=== PATIENT | female | born 1945 | race Caucasian/White ===

== ENCOUNTER 2017-06-16 10:46 | Outpatient (CLI) | payer MEDICARE, MEDICAID ==
[2017-06-16 11:23] VITALS: BMI 29.3
[2017-06-16 13:07] LABS: #Eosinphils 0.1 thou/uL (0.0-0.7); #Lymphocytes 1.7 thou/uL (1.20-3.40); #Monocytes 0.4 thou/uL (0.11-0.59); #Neutrophils 4.5 thou/uL (1.40-6.50); %Basophils 0.3 % (0.0-1.0); %Eosinophils 0.9 % (0.0-10.0); %Lymphocytes 25.2 % (21.0-51.0); %Monocytes 5.3 % (0.0-10.0); Hematocrit 40.7 % (36.0-47.0); Mean Platelet Volume 9.1 fL (7.4-10.4); Red Blood Cell (RBC) Count 4.23 mill/uL (4.20-5.40); White Blood Cell (WBC) Count 6.6 thou/uL (4.8-10.8)
[2017-06-16 13:33] LABS: ALT (SGPT) 11 U/L (8-55); AST (SGOT) 16 U/L (5-34); Alkaline Phosphatase 125 U/L (40-150); Anion Gap 18 mmol/L (10-20); BUN (Urea Nitrogen) 18 mg/dL (9.8-20.1); Bilirubin, Total 0.5 mg/dL (0.2-1.2); Calc. Creatinine Clearance 64 mL/min (70-130); Calcium 9.3 mg/dL (7.8-10.44); Carbon Dioxide 25 mmol/L (23-31); Chloride 106 mmol/L (98-107); Estimated GFR-MDRD 59; Globulin 3.1 g/dL (2.4-3.5); Protein, Total 7.1 g/dL (6.0-8.3)
[2017-06-16 13:51] LABS: PTT 27.9 SEC (22.9-36.1)
--- NOTE | 2017-06-16 22:10 | EKG ---
Test Reason : Blood Pressure : / mmHG Vent. Rate : 073 BPM Atrial Rate : 073 BPM P-R Int : 128 ms QRS Dur : 086 ms QT Int : 390 ms P-R-T Axes : 053 082 006 degrees QTc Int : 429 ms Normal sinus rhythm Inferior infarct (cited on or before 06-MAR-2017) Abnormal ECG When compared with ECG of 06-MAR-2017 18:17, Criteria for Lateral infarct are no longer Present T wave inversion less evident in Inferior leads T wave inversion no longer evident in Anterolateral leads Confirmed by PRAFUL QUEZADA, SRuthann ([id number]) on 06/16/2017 10:09:59 PM Referred By: RASHAAD Confirmed By:DR. Constance BASILIO MD
== END 2017-06-16 10:47 | disposition home or self-care (01) ==
LOC: LABBT 10:46
PROVIDERS: ATTEND Internal Medicine Cardiovascular Disease
DX: Z01.818 Encounter for other preprocedural examination (principal); R07.9 Chest pain, unspecified
CPT/HCPCS: 80053; 85025; 85610; 85730; 93005; 93010

== ENCOUNTER 2017-06-19 06:13 | Inpatient (IN) | payer MEDICARE, MEDICAID ==
[2017-06-19] MEDS ORDERED: Nitroglycerin 100MG/250ML BOT 0 ML ONE (09:28)
[2017-06-19] MEDS ORDERED: Midazolam HCl 2 mg/2 ml Vial ONE (09:46)
[2017-06-19] MEDS ORDERED: Fentanyl 100 MCG/2 ML VIAL ONE (09:46)
[2017-06-19] MEDS ORDERED: Acetaminophen/Codeine 30-300mg Tablet PO PRN ×2 (11:27)
[2017-06-19] MEDS ORDERED: traMADol HCl 50 MG TAB PO PRN (11:27)
[2017-06-19] MEDS ORDERED: Nitroglycerin 0.4 MG TAB (25 Tab Bottle) SL PRN ×2 (11:27→11:35)
[2017-06-19] MEDS ORDERED: Sodium Chloride 0.9% 1,000 ML IV SCH (11:27)
--- NOTE | 2017-06-19 14:06 | RAD ---
CHEST 1 VIEW: HISTORY: Post catheter. COMPARISON: None. FINDINGS: Lungs are hypoinflated. Mild pulmonary venous congestion. No pneumothorax. Cardiac silhouette is u pper limits of normal. IMPRESSION: Mild lung hypoinflation. No acute intracranial abnormality. POS: [facility]
[2017-06-19] MEDS ORDERED: FLU VACC TS2017-18 (>65YR) 0.5 ML SYRINGE IM ONE (14:15)
[2017-06-19] MEDS ORDERED: Papaverine 60 MG/2 ML VIAL ONE (14:54)
[2017-06-19] MEDS ORDERED: Calcium Chloride 1 GM/10 ML Abboject SYRINGE ONE (14:54)
[2017-06-19] MEDS ORDERED: Lidocaine 2% PF 100 mg/5 ml Syringe ONE (14:54)
[2017-06-19] MEDS ORDERED: Protamine Sulfate 250 MG/25 ML VIAL ONE (14:54)
[2017-06-19] MEDS ORDERED: Nitroglycerin 50 MG/250 ML BOT ONE (14:54)
[2017-06-19] MEDS ORDERED: DOPamine/D5W 400 mg/250 ml PREMIX ONE (14:54)
[2017-06-19] MEDS ORDERED: Heparin 30,000 units/30 ml VIAL ONE (14:54)
[2017-06-19] MEDS ORDERED: Heparin 5,000 UNITS/ML VIAL ONE (14:54)
[2017-06-19] MEDS ORDERED: Sodium Bicarb 5 MEQ/10 ML Abboject 4.2% SYRINGE ONE (14:54)
[2017-06-19] MEDS ORDERED: Thrombin 5000 UNITS/5 ML VIAL ONE (14:54)
[2017-06-19] MEDS ORDERED: Aminocaproic Acid 5 GM/20 ML VIAL ONE (14:54)
[2017-06-19] MEDS ORDERED: Cardioplegic Soln 1,000 ML BAG ONE (14:54)
[2017-06-19] MEDS ORDERED: Magnesium 5 GM/10 ML VIAL ONE (14:54)
[2017-06-19] MEDS ORDERED: Potassium Chloride 60 MEQ/30 ML VIAL ONE (14:54)
[2017-06-19] MEDS ORDERED: Iopamidol 370 76% 100 ML VIAL ONE (15:11)
[2017-06-19] MEDS ORDERED: Communication Order-Pharmacy FS ONE (16:59)
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
[2017-06-19] MEDS ORDERED: Simvastatin 5 MG TAB PO SCH (21:00)
[2017-06-20] MEDS ORDERED: Fentanyl 250 MCG/5 ML VIAL ONE (06:45)
[2017-06-20] MEDS ORDERED: Vecuronium 10 MG VIAL ONE ×2 (06:45→08:15)
[2017-06-20] MEDS ORDERED: Heparin 10,000 UNITS/1 ML VIAL 30,000 UNITS in Sodium Chloride 0.9% 1,000 ML FS SCH (06:45)
[2017-06-20] MEDS ORDERED: Midazolam HCl 5 mg/5 ml Vial ONE (06:45)
[2017-06-20] MEDS ORDERED: CEFAZOLIN/Water 2 GM/20 ML SYRINGE ONE (06:52)
[2017-06-20] MEDS ORDERED: Midazolam HCl 2 mg/2 ml Vial ONE (07:06)
[2017-06-20] MEDS ORDERED: CEFAZOLIN 2 GM in Sodium Chloride 0.9% 100 ML IVPB SCH (07:30)
[2017-06-20] MEDS ORDERED: Lidocaine 2% PF 10 ML AMP (For Epidural Use) ONE (08:15)
[2017-06-20] MEDS ORDERED: Propofol 200 MG/20 ML VIAL ONE (08:15)
[2017-06-20] MEDS ORDERED: Aspirin 81 mg Enteric Coated Tablet PO SCH (09:00)
[2017-06-20] MEDS ORDERED: Losartan Potassium 25 MG TAB PO SCH (09:00)
[2017-06-20] MEDS ORDERED: Oxybutynin 5 MG TAB PO SCH (09:00)
[2017-06-20] MEDS ORDERED: Lisinopril 20 MG TAB PO SCH (09:00)
[2017-06-20] MEDS ORDERED: Albumin 5% 500 ML ONE (09:00)
[2017-06-20] MEDS ORDERED: Hydrochlorothiazide 25 MG TAB PO SCH (09:00)
[2017-06-20] MEDS ORDERED: Insulin Regular 300 UNITS/3 ML VIAL ONE (11:31)
[2017-06-20 13:27] LABS: Oxyhemoglobin 97.1 % (94.0-97.0); Sodium 144 mmol/L (135-148)
[2017-06-20 13:28] LABS: Mechanical Tidal Volume 550 ml; Mode SIMV/PS; Pressure Support 10 cmH2O; Vent YES
[2017-06-20] MEDS ORDERED: Promethazine HCl 25 MG/ML VIAL IM PRN (13:33)
[2017-06-20] MEDS ORDERED: Sodium Chloride 0.9% 1,000 ML IV SCH (13:33)
[2017-06-20] MEDS ORDERED: Nitroglycerin 50 MG/250 ML BOT 250 ML IVPB PRN (13:33)
[2017-06-20] MEDS ORDERED: DOPamine 400 MG/D5W 250 ML 250 ML IVPB PRN (13:33)
[2017-06-20] MEDS ORDERED: Post-Op Insulin Drip Protocol IVPB ONE (13:33)
[2017-06-20] MEDS ORDERED: Guaifenesin DM 100-10/5 ML UDCUP PO PRN (13:33)
[2017-06-20] MEDS ORDERED: Bisacodyl 5 MG TAB PO PRN (13:33)
[2017-06-20] MEDS ORDERED: Fentanyl 100 MCG/2 ML VIAL SLOW IVP PRN (13:33)
[2017-06-20] MEDS ORDERED: Phenylephrine 10 MG/NS 250 ML 250 ML IVPB PRN (13:33)
[2017-06-20] MEDS ORDERED: Acetaminophen 325 MG TAB PO PRN (13:33)
[2017-06-20] MEDS ORDERED: Bisacodyl 10 MG SUPP PR PRN (13:33)
[2017-06-20] MEDS ORDERED: Morphine PF 1 MG/ML SYR IV PRN (13:33)
[2017-06-20] MEDS ORDERED: Mag-Al 1200 mg/1200 mg/30 ML UDCUP PO PRN (13:33)
[2017-06-20] MEDS ORDERED: Norepinephrine 8 MG/0.9% NS 250 ML IVPB PRN (13:33)
[2017-06-20] MEDS ORDERED: traMADol HCl 50 MG TAB PO PRN ×2 (13:33→13:54)
[2017-06-20] MEDS ORDERED: HYDROcodone/Acetaminophen 5/325 mg Tablet PO PRN ×2 (13:33)
[2017-06-20] MEDS ORDERED: Dextrose 50% Abboject 50 ML SYRINGE SLOW IVP PRN (13:47)
[2017-06-20] MEDS ORDERED: Dextrose 5% in Water 1,000 ML IV PRN (13:47)
[2017-06-20] MEDS ORDERED: Insulin Regular 300 UNITS/3 ML VIAL SC PRN (13:47)
[2017-06-20 13:51] LABS: #Basophils 0.1 thou/uL (0.0-0.2); #Eosinphils 0.1 thou/uL (0.0-0.7); #Lymphocytes 2.6 thou/uL (1.20-3.40); #Neutrophils 14.4 thou/uL (1.40-6.50); %Basophils 0.6 % (0.0-1.0); %Eosinophils 0.5 % (0.0-10.0); %Lymphocytes 14.5 % (21.0-51.0); %Monocytes 5.4 % (0.0-10.0); Hematocrit 31.2 % (36.0-47.0); Mean Platelet Volume 8.7 fL (7.4-10.4); Red Blood Cell (RBC) Count 3.28 mill/uL (4.20-5.40); White Blood Cell (WBC) Count 18.2 thou/uL (4.8-10.8)
[2017-06-20 13:57] LABS: Prothrombin Time 17.5 SEC (12.0-14.7)
[2017-06-20 14:12] LABS: Anion Gap 14 mmol/L (10-20); BUN (Urea Nitrogen) 10 mg/dL (9.8-20.1); Calc. Creatinine Clearance 80 mL/min (70-130); Calcium 7.7 mg/dL (7.8-10.44); Carbon Dioxide 20 mmol/L (23-31); Chloride 113 mmol/L (98-107); Estimated GFR-MDRD 75
--- NOTE | 2017-06-20 14:25 | RAD ---
EXAM: ONE VIEW CHEST: HISTORY: Status post open heart surgery. COMPARISON: 06/20/17 at 1:29 p.m. FINDINGS: Redemonstration of endotracheal tube, just proximal to the elmer. Stable left-sided chest tube, med iastinal drainage catheter, and right-sided central venous catheter. Heart size is within normal ocampo its. Pulmonary vessels are slightly prominent. Costophrenic angles are clear. No masses or consoli dation. No osseous abnormalities. No pneumothorax. IMPRESSION: Findings compatible with recent open heart surgery. ET tube is still proximal to the elmer. Reposit ioning is recommended. POS: [facility]
--- NOTE | 2017-06-20 14:29 | OP ---
PREOPERATIVE DIAGNOSES: Refractory excisional angina, severe and diffuse three- vessel coronary artery disease, and preserved left ventricular systolic function. SURGEON: Gavino Jewell M.D. EDITOR MAGAZINE: Dr. Grimes. POSTOPERATIVE DIAGNOSES: Refractory excisional angina, severe and diffuse three -vessel coronary artery disease, and preserved left ventricular systolic function. SPONGE AND NEEDLE COUNTS: Correct. ANESTHESIA: General. OPERATION PERFORMED: Coronary artery bypass grafting x3 with left internal mammary artery to diagonal, reversed greater saphenous vein to OM, and reversed greater saphenous vein to PLMB. FINDINGS AT OPERATION: Coronary vessels were small and . LAD was only able to be identified in its distal aspect where it was threadlike and considered non-graftable. At the sites of distal anastomosis the diagonal was 1 mm, the OM 1-1.25 mm, and the PLMB 1 mm. Left internal mammary artery and greater saphenous vein were small, but otherwise usable conduits. DESCRIPTION OF OPERATION: The patient was taken to the operating room. Following the induction of general endotracheal anesthesia, the patient was prepped and draped in the usual sterile fashion. Left greater saphenous vein was harvested using the endoscopic technique. Sternotomy was performed. Left internal mammary artery was dissected in extrapleural fashion. Heparin dose was given and following assurance of an adequate ACT, the patient was cannulated in standard fashion. Cardiopulmonary bypass was instituted. Locations of distal anastomoses were marked. Cross-clamp was applied with a single application and a single dose of cold blood cardioplegia given antegrade. The first vein graft was anastomosed in end-to-side fashion to the OM using a continuous 7-0 Prolene suture. In similar fashion, the second vein graft was established to the PLMB. Left internal mammary artery was now anastomosed in end-to-side fashion to the diagonal using a continuous 7-0 Prolene suture. Mammary artery pedicle was tacked to the epicardium using 6-0 Prolene sutures. Systemic rewarming had been begun. With the head down and gentle suction on the aortic vent, the aortic cross-clamp was removed. Cardioversion was not required. Partial clamp was placed on the ascending aorta with a single application and the 2 proximal vein graft anastomoses performed to punch holes using continuous 6-0 Prolene sutures. Partial clamp was removed and vein grafts deaired. Following full systemic rewarming, patient was weaned from cardiopulmonary bypass without difficulty and following heparin reversal with Protamine, the patient was decannulated. Amicar had been used in standard fashion through the case. No intraoperative blood products were required. Pericardium was not closed. Eugene drains were positioned within the pericardial well and left pleural cavity. Sternum was reapproximated with interrupted #5 stainless steel wires. Linea alba and fascia were closed with running #1 Vicryl sutures followed by closure of the subcutaneous tissues with a running 2-0 Vicryl suture. Skin was closed with a 3 -0 Monocryl subcuticular stitch. Prior to closure, vancomycin paste had been applied to the sternal halves. Platelet-enriched and platelet-poor plasma had also been applied to the sternal wound. The patient was taken to the ICU. MARCIANO
[2017-06-20] MEDS: CEFAZOLIN/Water 2 GM/20 ML SYRINGE SLOW IVP SCH ×2 (14:37→23:05)
[2017-06-20] MEDS: Potassium Chloride 20 MEQ/100 ML PREMIX BAG IVPB PRN ×2 (14:37→20:47)
--- NOTE | 2017-06-20 15:16 | RAD ---
1 VIEW CHEST: Date: 06/20/17 HISTORY: Status post ET realignment. COMPARISON: 06/19/17 at 1404 hours. FINDINGS: There is an endotracheal tube just proximal to the elmer. There are sternotomy wires. Right-sided ch est tube and mediastinal drainage catheter noted. Right-sided central venous catheter with distal tip over the inferior vena cava. No consolidation or mass. No pneumothorax or osseous abnormalities. IMPRESSION: 1. Findings compatible with recent open heart surgery. 2. Endotracheal tube just proximal to the elmer. POS: [facility]
[2017-06-20] MEDS ORDERED: Sodium Chloride 0.45% 1,000 ML IV SCH (16:15)
[2017-06-20 16:49] LABS: Pressure Support 10 cmH2O; Sodium 143 mmol/L (135-148); Spontaneous Rate 19 min; Vent YES
[2017-06-20 16:50] LABS: Mode PSV
[2017-06-20] MEDS: Ondansetron HCl/PF 4 MG/2 ML Vial IVP PRN ×2 (16:56→21:11)
[2017-06-20] MEDS: Ketorolac Tromethamine 30 MG/ML VIAL IVP SCH ×2 (18:26→23:04)
[2017-06-20 19:34] LABS: Hematocrit 32.6 % (36.0-47.0)
[2017-06-20] MEDS: Famotidine/PF 20 mg/2ml Vial SLOW IVP SCH (20:31)
[2017-06-20] MEDS: Simvastatin 5 MG TAB PO SCH (20:33)
[2017-06-20] MEDS: Fentanyl 100 MCG/2 ML VIAL SLOW IVP PRN (23:20)
[2017-06-21] MEDS: hydrALAZINE 20 MG/ML VIAL SLOW IVP PRN ×2 (02:22→20:12)
[2017-06-21] MEDS: Fentanyl 100 MCG/2 ML VIAL SLOW IVP PRN ×2 (02:41→06:06)
[2017-06-21] MEDS ORDERED: niCARdipine 20MG In NaCl 20 MG/200 ML BAG IVPB PRN (04:03)
[2017-06-21 04:23] LABS: #Lymphocytes 0.8 thou/uL (1.20-3.40); #Monocytes 0.6 thou/uL (0.11-0.59); #Neutrophils 9.4 thou/uL (1.40-6.50); %Basophils 0.1 % (0.0-1.0); %Eosinophils 0.1 % (0.0-10.0); %Lymphocytes 7.3 % (21.0-51.0); %Monocytes 5.2 % (0.0-10.0); Mean Platelet Volume 9.3 fL (7.4-10.4); Red Blood Cell (RBC) Count 3.15 mill/uL (4.20-5.40); White Blood Cell (WBC) Count 10.8 thou/uL (4.8-10.8)
[2017-06-21 04:40] LABS: Anion Gap 10 mmol/L (10-20); BUN (Urea Nitrogen) 15 mg/dL (9.8-20.1); Calc. Creatinine Clearance 68 mL/min (70-130); Carbon Dioxide 23 mmol/L (23-31); Chloride 111 mmol/L (98-107); Estimated GFR-MDRD 62
[2017-06-21] MEDS: Potassium Chloride 20 MEQ/100 ML PREMIX BAG IVPB PRN (05:31)
[2017-06-21] MEDS: Ketorolac Tromethamine 30 MG/ML VIAL IVP SCH ×4 (05:35→23:00)
[2017-06-21] MEDS: CEFAZOLIN/Water 2 GM/20 ML SYRINGE SLOW IVP SCH (05:58)
--- NOTE | 2017-06-21 09:05 | RAD ---
PORTABLE CHEST: Date: 06/21/17 HISTORY: Postop open heart surgery. COMPARISON: Prior day's study. FINDINGS: Since the prior examination, endotracheal tube has been removed. Chest otherwise remains stable. IMPRESSION: Interval removal of the endotracheal tube, otherwise stable chest. POS: [facility]
[2017-06-21] MEDS: Famotidine/PF 20 mg/2ml Vial SLOW IVP SCH ×2 (09:55→20:04)
[2017-06-21] MEDS: Aspirin 325 MG TAB PO SCH (09:55)
[2017-06-21] MEDS: Oxybutynin 5 MG TAB PO SCH (09:55)
--- NOTE | 2017-06-21 10:08 | EKG ---
Test Reason : POST CABG Blood Pressure : / mmHG Vent. Rate : 064 BPM Atrial Rate : 064 BPM P-R Int : 144 ms QRS Dur : 090 ms QT Int : 494 ms P-R-T Axes : 071 049 073 degrees QTc Int : 509 ms Sinus rhythm with Premature atrial complexes Prolonged QT ST elevation in inf leads. cannot R/O inf HI. Consider serial EKG Abnormal ECG When compared with ECG of 16-JUN-2017 11:26, Premature atrial complexes are now Present Criteria for Inferior infarct are no longer Present ST elevation now present in Inferior leads ST no longer depressed in Lateral leads T wave inversion no longer evident in Inferior leads QT has lengthened Confirmed by PRAFUL QUEZADA, DR. Nolasco (4) on 06/21/2017 10:07:42 AM Referred By: OMID Confirmed By:DR. Constance BASILIO MD
--- NOTE | 2017-06-21 15:52 | PRG ---
DATE OF SERVICE: 06/21/2017 SUBJECTIVE: Ms. Guevara is sleeping. She is comfortable. No shortness of breath or chest pain. PHYSICAL EXAMINATION: VITAL SIGNS: Blood pressure is 131/62, pulse 70, it is regular. LUNGS: Clear. CARDIAC: Normal S1 and S2. ABDOMEN: Soft, nontender. EXTREMITIES: There is no edema. ASSESSMENT: 1. Status post coronary artery bypass grafting yesterday, doing well. 2. Hypertension. Preoperatively now relatively low blood pressure as is usually seen postoperativel y. 3. Hypercholesterolemia. PLAN: Begin beta blockers when feasible. No other changes at this point.
[2017-06-21] MEDS: Simvastatin 5 MG TAB PO SCH (20:04)
[2017-06-22 03:33] LABS: #Lymphocytes 1.6 thou/uL (1.20-3.40); #Monocytes 0.7 thou/uL (0.11-0.59); #Neutrophils 8.1 thou/uL (1.40-6.50); %Basophils 0.2 % (0.0-1.0); %Eosinophils 0.4 % (0.0-10.0); %Lymphocytes 15.5 % (21.0-51.0); %Monocytes 6.9 % (0.0-10.0); Hematocrit 27.6 % (36.0-47.0); Mean Platelet Volume 9.1 fL (7.4-10.4); Red Blood Cell (RBC) Count 2.89 mill/uL (4.20-5.40); White Blood Cell (WBC) Count 10.5 thou/uL (4.8-10.8)
[2017-06-22 03:52] LABS: Anion Gap 10 mmol/L (10-20); BUN (Urea Nitrogen) 19 mg/dL (9.8-20.1); Calc. Creatinine Clearance 79 mL/min (70-130); Calcium 8.3 mg/dL (7.8-10.44); Carbon Dioxide 22 mmol/L (23-31); Chloride 108 mmol/L (98-107); Estimated GFR-MDRD 76
[2017-06-22] MEDS: Potassium Chloride 20 MEQ/100 ML PREMIX BAG IVPB PRN (03:56)
[2017-06-22] MEDS: Ketorolac Tromethamine 30 MG/ML VIAL IVP SCH ×3 (05:03→17:24)
--- NOTE | 2017-06-22 08:46 | PRG ---
DATE OF SERVICE: 06/22/2017 SUBJECTIVE: Ms. Guevara is feeling well, no complaints. OBJECTIVE: VITAL SIGNS: Her blood pressure is elevated today 150/52, pulse 76 regular. LUNGS: Clear. CARDIAC: Normal S1, normal S2. ABDOMEN: Soft, nontender. EXTREMITIES: There is no edema. ASSESSMENT: 1. Status post bypass. 2. The patient is now becoming hypertensive with previous history of hypertension. 3. Hypercholesterolemia. PLAN: 1. Resume beta blockers. 2. Add losartan, which she was on previously. We will start the beta blockers first.
[2017-06-22] MEDS: Oxybutynin 5 MG TAB PO SCH (09:05)
[2017-06-22] MEDS: Aspirin 325 MG TAB PO SCH (09:05)
[2017-06-22] MEDS: Famotidine/PF 20 mg/2ml Vial SLOW IVP SCH ×2 (09:06→21:21)
--- NOTE | 2017-06-22 09:24 | RAD ---
PORTABLE CHEST: Date: 06/22/17 HISTORY: Postop open heart surgery. COMPARISON: Prior day's exam. FINDINGS: Heart size is enlarged with postop sternotomy changes. Chest tubes remain in place. Right subclavian line is unchanged in position. Atelectatic changes are seen in the left base. IMPRESSION: Stable exam. POS: [facility]
[2017-06-22] MEDS ORDERED: Furosemide 40 MG TAB PO SCH (10:00)
[2017-06-22] MEDS: hydrALAZINE 20 MG/ML VIAL SLOW IVP PRN (11:47)
[2017-06-22] MEDS: Losartan Potassium 25 MG TAB PO SCH (17:23)
[2017-06-22] MEDS: Simvastatin 5 MG TAB PO SCH (21:21)
[2017-06-23] MEDS: Ketorolac Tromethamine 30 MG/ML VIAL IVP SCH ×4 (00:27→17:31)
[2017-06-23 04:40] LABS: #Eosinphils 0.1 thou/uL (0.0-0.7); #Lymphocytes 1.7 thou/uL (1.20-3.40); #Monocytes 0.6 thou/uL (0.11-0.59); #Neutrophils 6.4 thou/uL (1.40-6.50); %Basophils 0.2 % (0.0-1.0); %Eosinophils 0.9 % (0.0-10.0); %Lymphocytes 18.9 % (21.0-51.0); %Monocytes 6.8 % (0.0-10.0); Mean Platelet Volume 8.8 fL (7.4-10.4); Red Blood Cell (RBC) Count 2.74 mill/uL (4.20-5.40); White Blood Cell (WBC) Count 8.8 thou/uL (4.8-10.8)
[2017-06-23 04:59] LABS: Anion Gap 7 mmol/L (10-20); BUN (Urea Nitrogen) 18 mg/dL (9.8-20.1); Calc. Creatinine Clearance 90 mL/min (70-130); Calcium 8.1 mg/dL (7.8-10.44); Carbon Dioxide 27 mmol/L (23-31); Chloride 106 mmol/L (98-107); Estimated GFR-MDRD 86
[2017-06-23 06:45] VITALS: BMI 28.6
[2017-06-23] MEDS ORDERED: Furosemide 40 MG TAB PO SCH (07:30)
[2017-06-23] MEDS: Famotidine/PF 20 mg/2ml Vial SLOW IVP SCH (08:09)
[2017-06-23] MEDS: Aspirin 325 MG TAB PO SCH (08:10)
[2017-06-23] MEDS: Oxybutynin 5 MG TAB PO SCH (08:10)
[2017-06-23] MEDS ORDERED: Artificial Tears 18 DROP/0.9 ML EA EYE PRN (08:19)
[2017-06-23] MEDS ORDERED: Promethazine HCl 25 MG/ML VIAL IM PRN (08:19)
[2017-06-23] MEDS ORDERED: Bisacodyl 5 MG TAB PO PRN (08:19)
[2017-06-23] MEDS ORDERED: Milk Of Magnesia 30 ML UDCUP PO PRN (08:19)
[2017-06-23] MEDS ORDERED: Fentanyl 100 MCG/2 ML VIAL SLOW IVP PRN ×2 (08:19)
[2017-06-23] MEDS ORDERED: Acetaminophen 325 MG TAB PO PRN (08:19)
[2017-06-23] MEDS ORDERED: Mineral Oil ENEMA PR PRN (08:19)
[2017-06-23] MEDS ORDERED: Mag-Al 1200 mg/1200 mg/30 ML UDCUP PO PRN (08:19)
[2017-06-23] MEDS ORDERED: Nitroglycerin 0.4 MG TAB 1 EACH SL PRN (08:19)
[2017-06-23] MEDS ORDERED: Ondansetron HCl/PF 4 MG/2 ML Vial IVP PRN (08:19)
[2017-06-23] MEDS ORDERED: Bisacodyl 10 MG SUPP PR PRN (08:19)
[2017-06-23] MEDS ORDERED: Zolpidem Tartrate 5 MG TAB PO PRN (08:19)
[2017-06-23] MEDS ORDERED: diphenhydrAMINE 25 MG CAP PO PRN (08:19)
[2017-06-23] MEDS ORDERED: HYDROcodone/Acetaminophen 5/325 mg Tablet PO PRN ×2 (08:19)
[2017-06-23] MEDS ORDERED: Guaifenesin DM 100-10/5 ML UDCUP PO PRN (08:19)
[2017-06-23] MEDS ORDERED: Potassium Chloride 20 MEQ in Premix Bag 1 BAG IVPB SCH (08:30)
--- NOTE | 2017-06-23 09:09 | RAD ---
PORTABLE AP CHEST XRAY: DATE: 06/23/17. HISTORY: Post open heart surgery. Followup evaluation. COMPARISON: 06/22/17. FINDINGS: Postsurgical changes related to median sternotomy again present. Right subclavian central venous cat heter is unchanged in position. Cardiac silhouette remains enlarged. Linear density is seen in the left mid lung zone which may be related to mild atelectasis. Lungs otherwise appear clear. The thor acostomy tubes have been removed bilaterally. No obvious pneumothorax is appreciated on this exam. There is no pleural effusion seen. Parenchymal changes seen in the right infrahilar region probably related to atelectasis as well. IMPRESSION: 1. Interval removal of thoracostomy tubes. No obvious pneumothorax is seen. 2. Cardiomegaly. 3. Probable atelectasis left mid lung zone. POS: [facility]
[2017-06-23] MEDS: Aspirin 325 mg Enteric Coated Tablet PO SCH (10:31)
[2017-06-23] MEDS: Famotidine 20 MG TAB PO SCH ×2 (10:31→21:14)
[2017-06-23 12:47] LABS: Sodium 142 mmol/L (135-148)
[2017-06-23 12:47] LABS: Oxyhemoglobin 97.9 % (94.0-97.0); Sodium 142 mmol/L (135-148)
[2017-06-23 12:48] LABS: Oxyhemoglobin 97.7 % (94.0-97.0); Sodium 142 mmol/L (135-148)
[2017-06-23 12:48] LABS: Oxyhemoglobin 97.8 % (94.0-97.0); Sodium 143 mmol/L (135-148)
[2017-06-23 12:49] LABS: Base Excess -1.2 mEq/L (0 (+/- 2.5)); O2 Content (venous) 8.4 VOL% (12.5-17.5); pH (venous) 7.38 (7.35-7.45)
[2017-06-23 14:30] LABS: Mode OR ABG; Vent YES
[2017-06-23 14:31] LABS: Mode OR ABG; Vent YES
[2017-06-23 14:31] LABS: Mode OR ABG; Vent YES
[2017-06-23 14:32] LABS: Mode OR ABG; Vent YES
[2017-06-23 15:43] LABS: Oxyhemoglobin 97.9 % (94.0-97.0); Sodium 139 mmol/L (135-148)
[2017-06-23 15:46] LABS: Mode OR ABG; Vent YES
[2017-06-23] MEDS: Losartan Potassium 25 MG TAB PO SCH (17:31)
--- NOTE | 2017-06-23 20:08 | PDOC.CTH ---
Cardiology Progress Note - Subjective She is doing well. She is working with PT and feels well doing so. She has had 2 normal BM's since yesterday. - Objective Vital Signs Temp Pulse Pulse Pulse Resp BP BP 06/23/17 15:05 96.9 F L 82 16 06/23/17 15:00 96.9 F L 82 16 06/23/17 11:34 98.5 F 06/23/17 09:04 85 86 117/61 106/71 BP Pulse Ox Pulse Ox Pulse Ox 06/23/17 15:05 96 06/23/17 15:00 144/67 H 96 06/23/17 11:34 06/23/17 09:04 99 95 Weight 155 lb 13.869 oz 06/22/17 06/23/17 06/24/17 06:59 06:59 06:59 Intake Total 1381.5 1060 1180 Output Total 908 2345 650 Balance 473.5 -1285 530 - Physical Examination General/Neuro: alert & oriented x3, NAD Neck: no JVD present Lungs: CTA, unlabored respirations Heart: RRR Abdomen: NT/ND Extremities: other: (no edema) - Telemetry Telemetry Rhythm: NSR - Labs Result Diagrams: 06/23/17 04:30 06/23/17 04:30 - Assessment/Plan 1. Multivessel CAD 2. S/P CABG 3. HTN PLAN - Continue Aspirin, statin, BB, ACEI - Increase PT as tolerated. - Replace KRuthann
[2017-06-23] MEDS: Simvastatin 5 MG TAB PO SCH (21:14)
[2017-06-24] MEDS: Potassium Chloride 20 MEQ TAB PO SCH (08:30)
[2017-06-24] MEDS: Furosemide 40 MG TAB PO SCH (08:30)
[2017-06-24] MEDS: Famotidine 20 MG TAB PO SCH ×2 (08:30→20:46)
[2017-06-24] MEDS: Oxybutynin 5 MG TAB PO SCH (08:30)
[2017-06-24] MEDS: Aspirin 325 mg Enteric Coated Tablet PO SCH (08:30)
[2017-06-24] MEDS ORDERED: FLU VACC TS2017-18 (>65YR) 0.5 ML SYRINGE IM ONE (16:00)
[2017-06-24] MEDS: Losartan Potassium 25 MG TAB PO SCH (17:00)
--- NOTE | 2017-06-24 17:48 | PDOC.CTH ---
Cardiology Progress Note - Subjective She is working well with PT. No other issues. Had BM yesterday without problems. - Objective Vital Signs Temp Pulse Pulse Pulse Resp BP BP 06/24/17 15:50 98.3 F 92 18 06/24/17 12:25 98.4 F 87 29 H 06/24/17 11:10 78 76 180/77 H 134/79 06/24/17 08:00 98.5 F 81 17 BP Pulse Ox Pulse Ox Pulse Ox 06/24/17 15:50 138/64 93 L 06/24/17 12:25 124/69 95 06/24/17 11:10 95 95 06/24/17 08:00 166/77 H 96 Weight 154 lb 4.8 oz 06/23/17 06/24/17 06/25/17 06:59 06:59 06:59 Intake Total 1060 1420 Output Total 2345 1100 Balance -1285 320 - Physical Examination General/Neuro: alert & oriented x3, NAD Neck: no JVD present Lungs: unlabored respirations Heart: RRR Abdomen: NT/ND Extremities: other: (no edema) - Telemetry Telemetry Rhythm: NSR, NSVT - Labs Result Diagrams: 06/23/17 04:30 06/23/17 04:30 - Assessment/Plan 1. Multivessel CAD 2. S/P CABG 3. HTN 4. Non sustained VT PLAN - Continue Aspirin, statin, BB, ACEI - Increase PT as tolerated. - Will increase BB to 75 mg BID metoprolol. - May discharge home tomorrow.
[2017-06-24] MEDS: Simvastatin 5 MG TAB PO SCH (20:46)
--- NOTE | 2017-06-24 22:53 | DIS ---
REASON FOR ADMISSION: Cardiac catheterization. CLINICAL RESUME: The patient is a 71-year-old female with history of exertional chest pain for which she was hospitalized this past March, at which time a nuclear stress test was normal with ejection fraction of 70%. The exertional chest pain, however, persisted. Additionally, the patient was in az ed of right knee replacement. Decision was made to proceed with cardiac catheterization which demons trated severe 3-vessel disease with confirmation of her preserved left ventricular systolic function. The patient was referred for coronary artery bypass surgery and on 06/20/2017 underwent coronary ar june bypass grafting x3 with left internal mammary artery to diagonal, reversed greater saphenous vei n to OM, and reversed greater saphenous vein to PLMB. See operative report for details. She receive d no blood products. Her postoperative course has been unremarkable and as of today, she was conside red stable for discharge. Follow up will be arranged in my office in 2 weeks or sooner p.r.n. DIET: Cardiac prudent. ACTIVITY: Light with restrictions on driving and heavy lifting at this time. WOUND CARE: As instructed. DISCHARGE MEDICATIONS: She is to resume her complete home regimen without change. NEW MEDICATION: Delano 5/325 mg 1 to 2 q.4 to 6 hours p.r.n.
[2017-06-25 05:58] LABS: Anion Gap 10 mmol/L (10-20); BUN (Urea Nitrogen) 11 mg/dL (9.8-20.1); Calc. Creatinine Clearance 82 mL/min (70-130); Calcium 8.3 mg/dL (7.8-10.44); Carbon Dioxide 26 mmol/L (23-31); Chloride 103 mmol/L (98-107); Estimated GFR-MDRD 84
[2017-06-25] MEDS: Potassium Chloride 20 MEQ TAB PO SCH (08:34)
[2017-06-25] MEDS: Aspirin 325 mg Enteric Coated Tablet PO SCH (08:34)
[2017-06-25] MEDS: Furosemide 40 MG TAB PO SCH (08:34)
[2017-06-25] MEDS: Famotidine 20 MG TAB PO SCH (08:34)
[2017-06-25] MEDS: Oxybutynin 5 MG TAB PO SCH (08:35)
[2017-06-25 13:18] VITALS: BP 131/62; TEMP 98.1
--- NOTE | 2017-06-25 16:39 | PDOC.CTH ---
Cardiology Progress Note - Subjective No new issues. Doing well. No chest pain, no more arrhythmias except for rare PVC's. - Objective Vital Signs Temp Pulse Resp BP Pulse Ox 06/25/17 12:11 98.1 F 75 17 131/62 98 06/25/17 07:46 98.9 F 79 18 122/73 95 Weight 150 lb 12.8 oz 06/24/17 06/25/17 06/26/17 06:59 06:59 06:59 Intake Total 1420 1330 Output Total 1100 1050 Balance 320 280 - Physical Examination General/Neuro: alert & oriented x3, NAD Neck: no JVD present Lungs: CTA, unlabored respirations Heart: RRR Abdomen: NT/ND Extremities: other: (no edema.) - Telemetry Telemetry Rhythm: NSR - Labs Result Diagrams: 06/23/17 04:30 06/25/17 04:54 - Assessment/Plan 1. Multivessel CAD 2. S/P CABG 3. HTN 4. Non sustained VT PLAN - Continue Aspirin, statin, BB, ACEI - Increase PT as tolerated. - May discharge home. Follow up in 1 month.
[2017-06-27] MEDS ORDERED: hydrALAZINE 20 MG/ML VIAL SLOW IVP SCH (03:45)
== END 2017-06-25 15:15 | disposition home or self-care (01) | DRG 234 ==
LOC: CCL 06:13 → 2NO 10:00 → CCU 06-20 05:15 → 2NO 06-23 15:29
PROVIDERS: ADMIT Internal Medicine Cardiovascular Disease; ATTEND Internal Medicine Cardiovascular Disease
PROC: 4A023N7 Measurement of Cardiac Sampling and Pressure, Left Heart, Percutaneous Approach (ICD-10-PCS; 2017-06-19)
PROC: B2111ZZ Fluoroscopy of Multiple Coronary Arteries using Low Osmolar Contrast (ICD-10-PCS; 2017-06-19)
PROC: B2151ZZ Fluoroscopy of Left Heart using Low Osmolar Contrast (ICD-10-PCS; 2017-06-19)
PROC: 02100Z9 Bypass Coronary Artery, One Artery from Left Internal Mammary, Open Approach (ICD-10-PCS; principal; 2017-06-20)
PROC: 021109W Bypass Coronary Artery, Two Arteries from Aorta with Autologous Venous Tissue, Open Approach (ICD-10-PCS; 2017-06-20)
PROC: 06BQ4ZZ Excision of Left Saphenous Vein, Percutaneous Endoscopic Approach (ICD-10-PCS; 2017-06-20)
PROC: 5A1221Z Performance of Cardiac Output, Continuous (ICD-10-PCS; 2017-06-20)
DX: I25.118 Atherosclerotic heart disease of native coronary artery with other forms of angina pectoris (principal); I47.2 Ventricular tachycardia; I10 Essential (primary) hypertension; E78.00 Pure hypercholesterolemia, unspecified; M17.11 Unilateral primary osteoarthritis, right knee; Z23 Encounter for immunization
CPT/HCPCS: 36415; 36416; 36430; 71010; 80048; 80053; 80061; 82805; 85025; 85610; 85730; 86850; 86900; 86901; 90471; 90682; 93005; 93010; 93458; 93798; 94002; 94150; 99152; A4216; C1769; G0008; J0360; J1265; J1642; J1644; J1815; J1885; J2001; J2250; J2274; J2405; J2440; J2550; J2704; J2720; J3010; J3370; J3475; J3480; J7050; P9045; Q2036; S0017; S0028

== ENCOUNTER 2017-07-02 16:09 | Emergency (ER) | payer MEDICARE, MEDICAID ==
--- NOTE | 2017-07-02 16:51 | RAD ---
PORTABLE CHEST: 07/02/17 HISTORY: Chest pain. COMPARISON: 06/23/17. Cardiomegaly with postop sternotomy change. The lung vyas are clear. No evidence of vascular conges tion or edema. IMPRESSION: Cardiomegaly. No acute process apparent. POS: [facility]
[2017-07-02 17:05] LABS: #Eosinphils 0.1 thou/uL (0.0-0.7); #Lymphocytes 1.1 thou/uL (1.20-3.40); #Monocytes 0.3 thou/uL (0.11-0.59); #Neutrophils 4.9 thou/uL (1.40-6.50); %Basophils 0.3 % (0.0-1.0); %Eosinophils 1.9 % (0.0-10.0); %Lymphocytes 17.3 % (21.0-51.0); %Monocytes 4.7 % (0.0-10.0); Hematocrit 38.6 % (36.0-47.0); Mean Platelet Volume 7.2 fL (7.4-10.4); Red Blood Cell (RBC) Count 4.05 mill/uL (4.20-5.40); White Blood Cell (WBC) Count 6.5 thou/uL (4.8-10.8)
[2017-07-02 17:12] LABS: Prothrombin Time 13.5 SEC (12.0-14.7)
[2017-07-02 17:27] LABS: ALT (SGPT) 32 U/L (8-55); AST (SGOT) 82 U/L (5-34); Alkaline Phosphatase 280 U/L (40-150); Anion Gap 12 mmol/L (10-20); BUN (Urea Nitrogen) 13 mg/dL (9.8-20.1); Bilirubin, Total 0.6 mg/dL (0.2-1.2); CK (CPK) 41 U/L (29-168); Calc. Creatinine Clearance 0 mL/min (70-130); Calcium 9.2 mg/dL (7.8-10.44); Carbon Dioxide 26 mmol/L (23-31); Chloride 99 mmol/L (98-107); Estimated GFR-MDRD 73; Globulin 3.5 g/dL (2.4-3.5); Lipase 31 U/L (8-78); Protein, Total 7.1 g/dL (6.0-8.3)
[2017-07-02 17:33] LABS: Troponin I 1.083 ng/mL (< 0.028)
[2017-07-02] MEDS ORDERED: Ondansetron HCl/PF 4 MG/2 ML Vial ONE (17:38)
--- NOTE | 2017-07-02 18:59 | CT ---
CTA CHEST THREE VIEW WITH VOLUME RENDERING 07/02/17 INDICATION: Chest pain. FINDINGS: Evidence of prior sternotomy. There is presternal mixed density with fluid and fat which may be on th e basis of postoperative hematoma. Superimposed infection cannot be excluded on the basis of this exa m and therefore clinical correlation is necessary in this regard. There is no evidence of a significa nt filling defect of the pulmonary arterial system. Thoracic aorta is nonaneurysmal with scattered va scular disease. There are multiple focal hypodensities of the hepatic parenchyma incompletely assesse d and not fully visualized on this exam. Scattered areas of linear and ground glass density of each p ulmonary parenchyma are present favoring atelectasis. There is a small hiatal hernia. Thoracic lymph nodes within normal limits of size. IMPRESSION: 1. No large, central pulmonary embolus is identified. 2. Post sternotomy with presternal fat and fluid density collection which may be on the basis of postoperative hematoma. Recommend clinical correlation to exclude a superimposed infectious process. 3. Multifocal patchy opacities and linear densities of each lung favoring atelectasis. POS: [facility]
[2017-07-02] MEDS ORDERED: Potassium Chloride 20 MEQ TAB ONE (19:20)
== END 2017-07-02 19:52 | disposition home or self-care (01) ==
LOC: ERS 16:09
DX: R11.2 Nausea with vomiting, unspecified (principal); E78.5 Hyperlipidemia, unspecified; I10 Essential (primary) hypertension; Z79.899 Other long term (current) drug therapy; Z79.82 Long term (current) use of aspirin
CPT/HCPCS: 36415; 71010; 71275; 80053; 82550; 82553; 83690; 84484; 85025; 85610; 85730; 93005; 96374; J2405

== ENCOUNTER 2017-09-02 15:00 | Inpatient (IN) | payer MEDICARE, MEDICAID ==
[2017-09-02] MEDS ORDERED: Norepinephrine 8 MG/250 ML BAG IVPB PRN (15:15)
[2017-09-02 17:22] LABS: #Eosinphils 0.1 thou/uL (0.0-0.7); #Lymphocytes 1.3 thou/uL (1.20-3.40); #Monocytes 0.4 thou/uL (0.11-0.59); %Basophils 0.5 % (0.0-1.0); %Eosinophils 0.7 % (0.0-10.0); %Lymphocytes 14.4 % (21.0-51.0); %Monocytes 4.6 % (0.0-10.0); %Neutrophils 79.8 % (42.0-75.0); Hemoglobin 10.8 g/dL (12.0-16.0); Mean Corpuscular HGB CONC 32.5 g/dL (32.0-36.0); Mean Corpuscular Hemoglobin 30.1 pg (27.0-31.0); Mean Corpuscular Volume 92.6 fl (81.0-99.0); Mean Platelet Volume 8.6 fL (7.4-10.4); Platelet Count 291 thou/uL (130-400); RBC Distribution Width 13.4 % (11.5-14.5); Red Blood Cell (RBC) Count 3.58 mill/uL (4.20-5.40); White Blood Cell (WBC) Count 8.8 thou/uL (4.8-10.8)
[2017-09-02 17:30] LABS: Prothrombin Time 13.3 SEC (12.0-14.7)
[2017-09-02 17:44] LABS: Anion Gap 13 mmol/L (10-20); BUN (Urea Nitrogen) 40 mg/dL (9.8-20.1); Calc. Creatinine Clearance 0 mL/min (70-130); Calcium 7.8 mg/dL (7.8-10.44); Carbon Dioxide 16 mmol/L (23-31); Chloride 113 mmol/L (98-107); Estimated GFR-MDRD 37; Glucose 102 mg/dL (80-115); Potassium 4.6 mmol/L (3.5-5.1); Sodium 137 mmol/L (136-145)
[2017-09-02 17:49] LABS: CKMB 2.4 ng/mL (0-6.6); Troponin I 0.018 ng/mL (< 0.028)
--- NOTE | 2017-09-02 17:59 | RAD ---
FRONTAL RADIOGRAPH CHEST 09/02/17 COMPARISON: 07/02/17. HISTORY: Chest pain for one week. FINDINGS: There is mild increased linear density within the medial left base which may signify volume loss or i nfiltrates. There is no pneumothorax noted. There is a right sided vascular catheter, distal tip overlying the ca voatrial junction. No lobar consolidation or alveolar edema. Mild linear density seen in the right infrahilar region, nonspecific. IMPRESSION: Nonspecific linear bibasilar density may signify volume loss or infiltrate. No lobar consolidation or alveolar edema. Recommend followup PA and lateral imaging of the chest following treatment. POS: [facility]
[2017-09-02] MEDS ORDERED: Mag-Al 1200 mg/1200 mg/30 ML UDCUP PO PRN (19:16)
[2017-09-02] MEDS ORDERED: Nitroglycerin 0.4 MG TAB (25 Tab Bottle) PO PRN (19:16)
[2017-09-02] MEDS ORDERED: Acetaminophen 325 MG TAB PO PRN (19:16)
[2017-09-02] MEDS ORDERED: Senokot 8.6 MG TAB PO PRN (19:16)
[2017-09-02] MEDS ORDERED: Calcium Carbonate 500 MG ChewTAB PO PRN (19:16)
[2017-09-02] MEDS ORDERED: Ondansetron HCl/PF 4 MG/2 ML Vial IVP PRN (19:16)
[2017-09-02] MEDS ORDERED: Ondansetron ODT 4 MG TAB PO PRN (19:16)
--- NOTE | 2017-09-02 19:23 | PDOC.EVN ---
Event Note - Event Note Event Note: Note dictated. Full code. DPOA - self/family
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
[2017-09-02 20:40] VITALS: BMI 28.3
[2017-09-02] MEDS: Sodium Chloride 0.9% 1,000 ML IV SCH (20:57)
[2017-09-02] MEDS ORDERED: Famotidine 20 MG TAB PO SCH (21:00)
[2017-09-02] MEDS: Pravastatin Sodium 20 MG TAB PO SCH (21:09)
[2017-09-02] MEDS: Docusate 100 MG CAP PO SCH (21:09)
[2017-09-02] MEDS ORDERED: cefTRIAXone\\ROCEPHIN 1 GM, Syringe 0.4 ML in Sterile Water 9.6 ML SLOW IVP SCH (22:00)
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
[2017-09-03 04:50] LABS: #Eosinphils 0.1 thou/uL (0.0-0.7); #Lymphocytes 1.8 thou/uL (1.20-3.40); #Monocytes 0.3 thou/uL (0.11-0.59); #Neutrophils 3.9 thou/uL (1.40-6.50); %Eosinophils 1.8 % (0.0-10.0); %Lymphocytes 28.9 % (21.0-51.0); %Monocytes 5.6 % (0.0-10.0); %Neutrophils 63.7 % (42.0-75.0); Hemoglobin 9.7 g/dL (12.0-16.0); Mean Corpuscular HGB CONC 32.2 g/dL (32.0-36.0); Mean Corpuscular Hemoglobin 29.5 pg (27.0-31.0); Mean Corpuscular Volume 91.5 fl (81.0-99.0); Mean Platelet Volume 8.8 fL (7.4-10.4); Platelet Count 234 thou/uL (130-400); RBC Distribution Width 13.4 % (11.5-14.5); Red Blood Cell (RBC) Count 3.28 mill/uL (4.20-5.40); White Blood Cell (WBC) Count 6.1 thou/uL (4.8-10.8)
[2017-09-03 04:59] LABS: Albumin 2.9 g/dL (3.4-4.8); Anion Gap 8 mmol/L (10-20); BUN (Urea Nitrogen) 31 mg/dL (9.8-20.1); BUN/Creatinine Ratio 32.63; Calc. Creatinine Clearance 61 mL/min (70-130); Carbon Dioxide 19 mmol/L (23-31); Chloride 115 mmol/L (98-107); Estimated GFR-MDRD 58; Glucose 73 mg/dL (80-115); Phosphorus 3.5 mg/dL (2.3-4.7); Sodium 138 mmol/L (136-145)
[2017-09-03 05:03] LABS: Troponin I 0.012 ng/mL (< 0.028)
[2017-09-03] MEDS: Sodium Chloride 0.9% 1,000 ML IV SCH ×4 (05:20→17:51)
[2017-09-03] MEDS: Docusate 100 MG CAP PO SCH ×2 (08:39→20:13)
[2017-09-03] MEDS ORDERED: Aspirin 325 MG TAB PO SCH (09:00)
[2017-09-03] MEDS ORDERED: cefTRIAXone\\ROCEPHIN 1 GM in Sodium Chloride 0.9% 100 ML IVPB SCH (09:00)
[2017-09-03] MEDS ORDERED: cefTRIAXone\\ROCEPHIN 1 GM, Syringe 0.4 ML in Sterile Water 9.6 ML SLOW IVP SCH (13:00)
[2017-09-03] MEDS ORDERED: traMADol HCl 50 MG TAB PO PRN (17:07)
[2017-09-03] MEDS ORDERED: HYDROcodone/Acetaminophen 5/325 mg Tablet PO PRN (17:14)
--- NOTE | 2017-09-03 17:14 | PDOC.PN ---
- Subjective Encounter Start Date: 09/03/17 Encounter Start Time: 16:00 Patient seen and examined. No new complaints. No overnight events. Off Levophed - Objective MAR Reviewed: Yes Vital Signs & Weight: Vital Signs (12 hours) Temp Pulse Resp Pulse Ox 09/03/17 16:00 98.6 F 09/03/17 12:00 98.3 F 09/03/17 07:09 98.1 F 46 L 16 100 Weight Weight 155 lb 2 oz Most Recent Monitor Data Heart Rate from ECG 55 NIBP 118/43 NIBP BP-Mean 92 Respiration from ECG 19 SpO2 99 I&O: 09/02/17 09/03/17 09/04/17 06:59 06:59 06:59 Intake Total 1280 360 Output Total 1320 1620 Balance -40 -1260 Result Diagrams: 09/03/17 04:20 09/03/17 04:20 EKG Reviewed by me: Yes (Tele SB) Phys Exam - Physical Examination Constitutional: NAD Respiratory: no wheezing, no rales, no rhonchi, clear to auscultation bilateral Cardiovascular: RRR, no rub no heaves/pulsations Gastrointestinal: soft, non-tender, no distention, positive bowel sounds Musculoskeletal: no edema Neurological: non-focal, normal sensation, moves all 4 limbs Psychiatric: normal affect, A&O x 3 Skin: no rash Dx/Plan - Plan out of bed/ambulate, DVT proph w/SCDs IMPRESSION: 1. Chest discomfort, rule out acute coronary artery syndrome. 2. Severe hypotension with bradycardia, probably medication induced with associated dehydration/acute kidney injury - requiring pressors 3. Acute kidney injury on chronic kidney disease stage 2. 4. Metabolic acidosis. 5. Chronic anemia. 6. Coronary artery disease, status post coronary artery bypass grafting. 7. History of hypertension. 8. History of nonsustained ventricular tachycardia. 9. Suspected sepsis on admission - ruled out PLAN: * Renal function improving * Change IVF to 70 ml/hr * Await Cardio input * Off pressors * AM labs * Resume tramadol/Hurst * Hold Metoprolol/Clonidine/Oxybutinin * Orthostatic vitals in AM Microbiology 09/02/17 13:30 Venous blood - Right Arm Blood Culture - Preliminary Specimen has been received and culture in progress. No Growth to date. 09/02/17 13:19 Venous blood - Right Hand Blood Culture - Preliminary Specimen has been received and culture in progress. No Growth to date. Review of Systems - Review of Systems Respiratory: negative: Cough, Dry, Shortness of Breath, Hemoptysis, SOB with Excertion, Pleuritic Pain, Sputum, Wheezing Cardiovascular: negative: chest pain, palpitations, orthopnea, paroxysmal nocturnal dyspnea, edema, light headedness - Medications/Allergies Allergies/Adverse Reactions: Allergies Allergy/AdvReac Type Severity Reaction Status Date / Time No Known Allergies Allergy Verified 03/06/17 22:19 Medications: Current Medications Acetaminophen (Tylenol) 650 mg PO Q4H PRN PRN Reason: Headache/Fever or Pain Al Hydroxide/Mg Hydroxide (Maalox) 30 ml PO Q6H PRN PRN Reason: Heartburn or Indigestion Albuterol/Ipratropium (Duoneb) 3 ml NEB [id number] PRN PRN Reason: SOB &/or Wheezing Aspirin (Ecotrin) 81 mg PO DAILY [facility] Calcium Carbonate (Tums) 1,000 mg PO Q4H PRN PRN Reason: Heartburn or Indigestion Docusate Sodium (Colace) 100 mg PO BID [facility] Last Admin: 09/03/17 08:39 Dose: 100 mg Famotidine (Pepcid) 20 mg PO BID [facility] Hydralazine HCl (Apresoline) 10 mg SLOW IVP Q4H PRN PRN Reason: SBP Greater Than 180 Norepinephrine Bitartrate (Levophed) 250 mls @ 0 mls/hr IVPB INF PRN; Protocol ; Titrate PRN Reason: Blood Pressure Ceftriaxone Sodium 1 gm/ (Syringe 0.4 ml/ Sterile Water) 10 mls @ 120 mls/hr SLOW IVP 1300 [facility] Last Admin: 09/03/17 13:42 Dose: 10 mls Sodium Chloride (Normal Saline 0.9%) 1,000 mls @ 70 mls/hr IV .[id number] [facility] Nitroglycerin (Nitrostat) 0.4 mg PO Q5MIN PRN PRN Reason: Chest Pain Ondansetron HCl (Zofran Odt) 4 mg PO Q6H PRN PRN Reason: Nausea/Vomiting Ondansetron HCl (Zofran) 4 mg IVP Q6H PRN PRN Reason: Nausea/Vomiting Pravastatin Sodium (Pravachol) 20 mg PO HS [facility] Last Admin: 09/02/17 21:09 Dose: 20 mg Senna (Senokot) 2 tab PO HSPRN PRN PRN Reason: Constipation Tramadol HCl (Ultram) mg PO Q6HR PRN PRN Reason: Pain
[2017-09-03] MEDS ORDERED: cloNIDine 0.1 MG TAB PO PRN (17:15)
--- NOTE | 2017-09-03 17:49 | PDOC.CTH ---
Cardiology Progress Note - Subjective She is doing well. No new concerns. - Objective Vital Signs Temp Pulse Resp Pulse Ox 09/03/17 16:00 98.6 F 09/03/17 12:00 98.3 F 09/03/17 07:09 98.1 F 46 L 16 100 Weight 155 lb 2 oz 09/02/17 09/03/17 09/04/17 06:59 06:59 06:59 Intake Total 1280 360 Output Total 1320 1620 Balance -40 -1260 - Physical Examination General/Neuro: alert & oriented x3, NAD Neck: no JVD present Lungs: CTA, unlabored respirations Heart: RRR Abdomen: NT/ND Extremities: other: (none) - Telemetry Telemetry Rhythm: NSR - Labs Result Diagrams: 09/03/17 04:20 09/03/17 04:20 Troponin/CKMB CK-MB (CK-2) 2.4 ng/mL (0-6.6) 09/02/17 17:10 Troponin I 0.012 ng/mL (< 0.028) 09/03/17 04:20 - Assessment/Plan 1. Hypotension, resolved. 2. Bradycardia, HR 40's. 3. CAD, s/p CABG. PLAN: - BP is [id number] actually higher now. Will plan on restarting ARB at a lower dose. - She is very non compliant with her meds and I suspect her BP would not require so much medication if she were more regular with her meds. - Losartan at 25 mg first dose tomorrow. - Would hold any clonidine for now as well as BB.
[2017-09-03] MEDS: Famotidine 20 MG TAB PO SCH (20:13)
[2017-09-03] MEDS: Pravastatin Sodium 20 MG TAB PO SCH (20:13)
[2017-09-03] MEDS: Cefuroxime Axetil 250 MG TAB PO SCH (20:47)
[2017-09-04] MEDS: hydrALAZINE 20 MG/ML VIAL SLOW IVP PRN ×2 (04:43→09:17)
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
[2017-09-04] MEDS ORDERED: Losartan 25 MG TAB PO SCH ×2 (09:00→10:45)
[2017-09-04] MEDS: Aspirin 81 mg Enteric Coated Tablet PO SCH (09:05)
[2017-09-04] MEDS: Sodium Chloride 0.9% 1,000 ML IV SCH (09:05)
[2017-09-04] MEDS: Cefuroxime Axetil 250 MG TAB PO SCH ×2 (09:06→20:55)
[2017-09-04] MEDS: Famotidine 20 MG TAB PO SCH ×2 (09:06→20:55)
[2017-09-04] MEDS: Docusate 100 MG CAP PO SCH ×2 (09:06→20:54)
--- NOTE | 2017-09-04 13:58 | PDOC.CTH ---
Cardiology Progress Note - Subjective She is doing better. No chest pain. She noticed a pain around her lower abdomen , no diarrhea. - Objective Vital Signs Temp Pulse Resp BP BP BP BP 09/04/17 11:43 98.5 F 81 16 186/78 H 09/04/17 09:03 98.5 F 81 20 191/86 H 09/04/17 08:05 98.5 F 81 16 09/04/17 04:43 71 09/04/17 04:40 97.9 F 61 20 214/88 H 233/106 H 201/82 H Pulse Ox 09/04/17 11:43 96 09/04/17 09:03 99 09/04/17 08:05 99 09/04/17 04:43 09/04/17 04:40 97 Weight 155 lb 12.8 oz 09/03/17 09/04/17 09/05/17 06:59 06:59 06:59 Intake Total 1280 4007 Output Total 1320 3890 Balance -40 117 - Physical Examination General/Neuro: alert & oriented x3, NAD Neck: no JVD present Lungs: CTA, unlabored respirations Heart: RRR Abdomen: NT/ND Extremities: + edema B (Trace) - Telemetry Telemetry Rhythm: NSR - Labs Result Diagrams: 09/03/17 04:20 09/03/17 04:20 Troponin/CKMB CK-MB (CK-2) 2.4 ng/mL (0-6.6) 09/02/17 17:10 Troponin I 0.012 ng/mL (< 0.028) 09/03/17 04:20 - Assessment/Plan 1. Hypotension, resolved. 2. Bradycardia, HR 40's, resolved, unlikely to cause low BP. 3. CAD, s/p CABG. PLAN: - She is very non compliant with her meds and I suspect her BP would not require so much medication if she were more regular with her meds. - Losartan to increase to 50 mg daily. - Continue to hold clonidine and BB.
--- NOTE | 2017-09-04 16:13 | PRG ---
DATE OF SERVICE: 09/04/2017 SUBJECTIVE: Ms. Guevara is afebrile, heart rate in the 80s, respiratory rate is in the 20s. Oxime try is in the high 90s in the room air. She has moderately hypertensive with blood pressure as high as 191/86 this morning. Overall, she has had no recurrent bradycardic events. Blood cultures from the 09/02/2017 remain negative. There is no new lab. IMPRESSION: 1. Bradycardias, transient 2. Hyperchloremic acidosis. 3. Prerenal azotemia. 4. Hypoalbuminemia. She is stable for transfer out of the Critical Care Unit. We will sign off.
[2017-09-04] MEDS: Pravastatin Sodium 20 MG TAB PO SCH (20:55)
--- NOTE | 2017-09-04 21:10 | PDOC.PN ---
- Subjective Encounter Start Date: 09/04/17 Encounter Start Time: 09:30 Patient seen and examined. Nausea + Mild epig discomfort. No overnight events - Objective MAR Reviewed: Yes Vital Signs & Weight: Vital Signs (12 hours) Temp Pulse Resp BP Pulse Ox 09/04/17 16:18 99.1 F 66 18 123/59 L 95 09/04/17 11:43 98.5 F 81 16 186/78 H 96 Weight Weight 155 lb 12.8 oz Most Recent Monitor Data Heart Rate from ECG 56 NIBP 148/67 NIBP BP-Mean 130 Respiration from ECG 28 SpO2 98 I&O: 09/03/17 09/04/17 09/05/17 06:59 06:59 06:59 Intake Total 1280 4007 Output Total 1320 3890 Balance -40 117 Result Diagrams: 09/03/17 04:20 09/03/17 04:20 EKG Reviewed by me: Yes (Tele SR) Phys Exam - Physical Examination Constitutional: NAD Respiratory: no wheezing, no rhonchi Cardiovascular: RRR, no rub Gastrointestinal: soft, positive bowel sounds mild epig tend +, no rebound/guarding Musculoskeletal: no edema Neurological: moves all 4 limbs Dx/Plan - Plan continue antibiotics, out of bed/ambulate, DVT proph w/SCDs IMPRESSION: 1. Chest discomfort, rule out acute coronary artery syndrome. 2. Severe hypotension with bradycardia, probably medication induced with associated dehydration/acute kidney injury - requiring pressors 3. Acute kidney injury on chronic kidney disease stage 2. improved 4. Metabolic acidosis. 5. Chronic anemia. 6. Coronary artery disease, status post coronary artery bypass grafting. 7. History of hypertension. 8. History of nonsustained ventricular tachycardia. 9. Suspected sepsis on admission - ruled out 10. Nausea ?gastritis PLAN: * DC IVF * Extra dose of Losartan 50 mg x 1 * Cardio following * Cont Zofran PRN * AM labs * Cont Pepcid * Hold Metoprolol/Clonidine/Oxybutinin * Orthostatic vitals in AM * Walking program Review of Systems - Review of Systems Respiratory: negative: Cough, Dry, Shortness of Breath, Hemoptysis, SOB with Excertion, Pleuritic Pain, Sputum, Wheezing Cardiovascular: negative: chest pain, palpitations, orthopnea, paroxysmal nocturnal dyspnea, edema, light headedness - Medications/Allergies Allergies/Adverse Reactions: Allergies Allergy/AdvReac Type Severity Reaction Status Date / Time No Known Allergies Allergy Verified 03/06/17 22:19 Medications: Current Medications Acetaminophen (Tylenol) 650 mg PO Q4H PRN PRN Reason: Headache/Fever or Pain Last Admin: 09/04/17 13:51 Dose: 650 mg Hydrocodone Bitart/Acetaminophen (Bucks 5/325) 1 tab PO Q6H PRN PRN Reason: Moderate Pain (4-6) Al Hydroxide/Mg Hydroxide (Maalox) 30 ml PO Q6H PRN PRN Reason: Heartburn or Indigestion Albuterol/Ipratropium (Duoneb) 3 ml NEB [id number] PRN PRN Reason: SOB &/or Wheezing Aspirin (Ecotrin) 81 mg PO DAILY [facility] Last Admin: 09/04/17 09:05 Dose: 81 mg Calcium Carbonate (Tums) 1,000 mg PO Q4H PRN PRN Reason: Heartburn or Indigestion Cefuroxime Axetil (Ceftin) 250 mg PO Q12HR [facility] Last Admin: 09/04/17 20:55 Dose: 250 mg Docusate Sodium (Colace) 100 mg PO BID [facility] Last Admin: 09/04/17 20:54 Dose: 100 mg Famotidine (Pepcid) 20 mg PO BID [facility] Last Admin: 09/04/17 20:55 Dose: 20 mg Hydralazine HCl (Apresoline) 10 mg SLOW IVP Q4H PRN PRN Reason: SBP Greater Than 180 Last Admin: 09/04/17 09:17 Dose: 10 mg Losartan Potassium (Cozaar) 50 mg PO DAILY [facility] Nitroglycerin (Nitrostat) 0.4 mg PO Q5MIN PRN PRN Reason: Chest Pain Ondansetron HCl (Zofran Odt) 4 mg PO Q6H PRN PRN Reason: Nausea/Vomiting Last Admin: 09/04/17 13:51 Dose: 4 mg Ondansetron HCl (Zofran) 4 mg IVP Q6H PRN PRN Reason: Nausea/Vomiting Pravastatin Sodium (Pravachol) 20 mg PO [facility] Last Admin: 09/04/17 20:55 Dose: 20 mg Senna (Senokot) 2 tab PO HSPRN PRN PRN Reason: Constipation Tramadol HCl (Ultram) 50 mg PO Q6H PRN PRN Reason: Pain
[2017-09-05 06:22] LABS: #Eosinphils 0.1 thou/uL (0.0-0.7); #Lymphocytes 1.9 thou/uL (1.20-3.40); #Monocytes 0.5 thou/uL (0.11-0.59); #Neutrophils 3.5 thou/uL (1.40-6.50); %Basophils 0.7 % (0.0-1.0); %Eosinophils 2.1 % (0.0-10.0); %Lymphocytes 31.8 % (21.0-51.0); %Monocytes 8.2 % (0.0-10.0); %Neutrophils 57.2 % (42.0-75.0); Hemoglobin 11.1 g/dL (12.0-16.0); Mean Corpuscular HGB CONC 33.1 g/dL (32.0-36.0); Mean Corpuscular Hemoglobin 30.1 pg (27.0-31.0); Mean Corpuscular Volume 90.9 fl (81.0-99.0); Mean Platelet Volume 8.8 fL (7.4-10.4); Platelet Count 264 thou/uL (130-400); RBC Distribution Width 13.7 % (11.5-14.5); Red Blood Cell (RBC) Count 3.69 mill/uL (4.20-5.40)
[2017-09-05 06:36] LABS: Albumin 2.9 g/dL (3.4-4.8); Anion Gap 10 mmol/L (10-20); BUN (Urea Nitrogen) 13 mg/dL (9.8-20.1); BUN/Creatinine Ratio 16.88; Calc. Creatinine Clearance 73 mL/min (70-130); Calcium 8.3 mg/dL (7.8-10.44); Carbon Dioxide 22 mmol/L (23-31); Chloride 114 mmol/L (98-107); Estimated GFR-MDRD 74; Glucose 90 mg/dL (80-115); Magnesium 1.6 mg/dL (1.6-2.6); Phosphorus 3.5 mg/dL (2.3-4.7); Potassium 3.6 mmol/L (3.5-5.1); Sodium 142 mmol/L (136-145)
[2017-09-05] MEDS ORDERED: Losartan 25 MG TAB PO SCH ×4 (09:00→11:00)
[2017-09-05] MEDS: Famotidine 20 MG TAB PO SCH (09:36)
[2017-09-05] MEDS: Cefuroxime Axetil 250 MG TAB PO SCH (09:36)
[2017-09-05] MEDS: Aspirin 81 mg Enteric Coated Tablet PO SCH (09:36)
[2017-09-05] MEDS: Docusate 100 MG CAP PO SCH (09:37)
[2017-09-05 09:41] VITALS: TEMP 99.4
--- NOTE | 2017-09-05 10:33 | PDOC.CTH ---
Cardiology Progress Note - Subjective She is doing well. She denies any chest pain, tightness ,pressure, SOB, her nausea is gone. - Objective Vital Signs Temp Pulse Resp BP BP BP Pulse Ox 09/05/17 08:04 99.4 F 83 18 156/70 H 100 09/05/17 08:00 98.7 F 80 18 182/79 H 93 L 09/05/17 05:25 96 09/05/17 04:18 98.2 F 90 20 176/81 H 96 09/05/17 04:00 176/81 H 217/98 H 228/104 H Weight 149 lb 09/04/17 09/05/17 09/06/17 06:59 06:59 06:59 Intake Total 4007 240 Output Total 3890 Balance 117 240 - Physical Examination General/Neuro: alert & oriented x3, NAD Neck: no JVD present Lungs: CTA, unlabored respirations Heart: RRR Abdomen: NT/ND Extremities: other: (no edema) - Telemetry Telemetry Rhythm: NSR - Labs Result Diagrams: 09/05/17 06:08 09/05/17 06:08 Troponin/CKMB CK-MB (CK-2) 2.4 ng/mL (0-6.6) 09/02/17 17:10 Troponin I 0.012 ng/mL (< 0.028) 09/03/17 04:20 - Assessment/Plan 1. Hypotension, resolved. 2. Bradycardia, HR 40's, resolved, unlikely to cause low BP. 3. CAD, s/p CABG. PLAN: - BP remains high on current doses. - Losartan to increase to 100 mg daily, restart HCTZ 25 mg daily. - Continue to hold clonidine and BB indefinitely. - May discharge home. - Plan to follow up with me in 2 weeks.
[2017-09-05 11:05] VITALS: BP 163/74
[2017-09-06] MEDS ORDERED: Losartan 25 MG TAB PO SCH (09:00)
[2017-09-06] MEDS ORDERED: Hydrochlorothiazide 25 MG TAB PO SCH ×2 (09:00)
--- NOTE | 2017-09-06 10:14 | DIS ---
DATE OF DISCHARGE: 09/05/2017 DISCHARGE DISPOSITION: Home. FOLLOWUP: 1. Follow up with primary care physician, Dr. Sreekanth Levine in 1 week. 2. Follow up with Dr. Virgen in 2 weeks. 3. [facility] will be arranged. ALLERGIES: The patient has no known drug allergies. DISCHARGE MEDICATIONS: Aspirin 81 mg daily, Ceftin 250 mg b.i.d. for next 5 days, hydrochlorothiazid e 25 mg daily, losartan 100 mg daily, sublingual nitroglycerin as needed, oxybutynin 5 mg daily, prav astatin 20 mg at bedtime, tramadol and [place] as needed, omeprazole 20 mg daily. The patient was seen and examined on the day of discharge. Denies any new complaints. No chest pain , shortness of breath or palpitations reported. DIAGNOSTIC TESTS: 2D echocardiogram showed left ventricular ejection fraction of 55%-60% with grade 1/3 diastolic dysfunction, moderate mitral regurgitation, mild aortic regurgitation, severe tricuspid regurgitation, elevated pulmonary artery pressure around 45 mmHg. Creatinine at discharge was 0.7. On admission, creatinine was 2.2 with potassium 5.4. BRIEF HOSPITAL COURSE: The patient is a 71-year-old female with coronary artery disease, status post CABG and probable medication noncompliance who presented to the emergency room at [facility] with danya sea, vomiting, and lightheadedness. Please refer to the history and physical dated 09/02/2017 for fu rther details. The patient was found to have blood pressure of 73/40 with heart rate in 40s. A central line was nahomi mellisa and she was started on Levophed drip. She was transferred to this facility via air ambulance. S he was monitored in the CCU. She also received one dose of atropine at the emergency room. The kaylyn ent was evaluated by Cardiology, Dr. Virgen as well as Critical Care, Dr. Cameron. Her renal function has normalized. Selected blood pressure medications have been restarted. She was advised to discont inue clonidine 0.2 mg, Toprol-XL 100 mg, as well as amlodipine 10 mg. All of these 3 medications elise l be discontinued. She was advised to monitor her blood pressure on the daily basis. She has been a lso started on Ceftin for possible bacterial infection as a possible additive factor. She has been c leared by Cardiology for discharge. FINAL DIAGNOSES: 1. Chest discomfort. Acute coronary syndrome ruled out. 2. Severe hypotension with bradycardia, corrected. 3. Acute kidney injury on chronic kidney disease stage 2, resolved. 4. Metabolic acidosis, improved. 5. Chronic anemia. 6. Coronary artery disease, status post coronary artery bypass graft. 7. Hypertension. 8. History of nonsustained ventricular tachycardia. 9. Suspected sepsis on admission. This has been ruled out. 10. Nausea, resolved. 11. Plan of care was discussed with the patient in detail. She stated understanding. Home health care has been arranged.
== END 2017-09-05 16:07 | disposition home health service (06) | DRG 315 ==
LOC: ERS 15:00 → CCU 20:11 → 2NO 09-04 00:04
PROVIDERS: ADMIT Internal Medicine; ATTEND Internal Medicine
PROC: 02HV33Z Insertion of Infusion Device into Superior Vena Cava, Percutaneous Approach (ICD-10-PCS; principal; 2017-09-02)
DX: I95.9 Hypotension, unspecified (principal); N17.9 Acute kidney failure, unspecified; E87.2 Acidosis; E88.09 Other disorders of plasma-protein metabolism, not elsewhere classified; R07.9 Chest pain, unspecified; I25.10 Atherosclerotic heart disease of native coronary artery without angina pectoris; R00.1 Bradycardia, unspecified; E86.0 Dehydration; D64.9 Anemia, unspecified; Z95.1 Presence of aortocoronary bypass graft; M19.90 Unspecified osteoarthritis, unspecified site; I12.9 Hypertensive chronic kidney disease with stage 1 through stage 4 chronic kidney disease, or unspecified chronic kidney disease; N18.2 Chronic kidney disease, stage 2 (mild); Z79.82 Long term (current) use of aspirin; Z91.14 Patient's other noncompliance with medication regimen; E78.5 Hyperlipidemia, unspecified
CPT/HCPCS: 36415; 36556; 71045; 80048; 80069; 82533; 82553; 83605; 83735; 84443; 84484; 85025; 85610; 93005; 93306; 94760; 96365; 96366; A4216; J0360; J0696; Q0162

== ENCOUNTER 2020-10-20 20:37 | Inpatient (IN) | payer MEDICARE ==
[2020-10-20] MEDS ORDERED: Potassium Chloride 20 MEQ TAB ONE (21:38)
[2020-10-20 22:27] LABS: Anion Gap 15 mmol/L (10-20); BUN (Urea Nitrogen) 9 mg/dL (9.8-20.1); Calc. Creatinine Clearance 0 mL/min (70-130); Calcium 8.7 mg/dL (7.8-10.44); Carbon Dioxide 24 mmol/L (23-31); Chloride 106 mmol/L (98-107); Glucose 95 mg/dL (83-110); Potassium 3.7 mmol/L (3.5-5.1); Sodium 141 mmol/L (136-145)
[2020-10-20 22:50] LABS: CKMB 4.2 ng/mL (0-6.6)
[2020-10-21 00:02] VITALS: BMI 27.3
[2020-10-21] MEDS ORDERED: Acetaminophen 650 MG Suppository PR PRN (01:53)
[2020-10-21] MEDS ORDERED: Acetaminophen 325 MG TAB PO PRN (01:53)
[2020-10-21] MEDS ORDERED: Nitroglycerin 0.4 MG TAB (25 Tab Bottle) SL PRN (03:03)
[2020-10-21] MEDS ORDERED: Enoxaparin Sodium 80 MG/0.8 ML SYRINGE SC SCH ×2 (03:15→15:00)
[2020-10-21 04:36] LABS: #Eosinphils 0.1 thou/uL (0.0-0.7); #Lymphocytes 1.8 thou/uL (1.20-3.40); #Monocytes 0.4 thou/uL (0.11-0.59); #Neutrophils 5.8 thou/uL (1.40-6.50); %Basophils 0.4 % (0.0-1.0); %Eosinophils 1.1 % (0.0-10.0); %Lymphocytes 22.3 % (21.0-51.0); %Monocytes 4.7 % (0.0-10.0); %Neutrophils 71.5 % (42.0-75.0); Hemoglobin 11.4 g/dL (12.0-16.0); Mean Corpuscular HGB CONC 32.9 g/dL (32.0-36.0); Mean Corpuscular Hemoglobin 29.7 pg (27.0-31.0); Mean Corpuscular Volume 90.4 fL (78.0-98.0); Mean Platelet Volume 10.1 fL (7.4-10.4); Platelet Count 247 thou/uL (130-400); RBC Distribution Width 13.5 % (11.5-14.5); Red Blood Cell (RBC) Count 3.84 mill/uL (4.20-5.40); White Blood Cell (WBC) Count 8.1 thou/uL (4.8-10.8)
[2020-10-21 04:51] LABS: SARS-CoV-2 PCR by NAA Not Detected (NotDetected)
[2020-10-21 05:04] LABS: Anion Gap 11 mmol/L (10-20); BUN (Urea Nitrogen) 9 mg/dL (9.8-20.1); Calc. Creatinine Clearance 71 mL/min (70-130); Calcium 8.2 mg/dL (7.8-10.44); Carbon Dioxide 23 mmol/L (23-31); Cardiac Risk 4.1 (Less than 4.5); Chloride 111 mmol/L (98-107); Cholesterol 219 mg/dl (< 200 Desired); Glucose 84 mg/dL (83-110); HDL Cholesterol 53 mg/dL (>60 Neg Risk); LDL Cholesterol, Calculated 146 mg/dL; Magnesium 1.8 mg/dL (1.6-2.6); Potassium 4.1 mmol/L (3.5-5.1); Sodium 141 mmol/L (136-145); Triglycerides 98 mg/dL (Less than 150)
[2020-10-21 05:09] LABS: Troponin I 0.473 ng/mL (< 0.028)
[2020-10-21] MEDS: Famotidine/PF 20 mg/2ml Vial SLOW IVP SCH ×2 (08:02→21:21)
[2020-10-21] MEDS ORDERED: Aspirin Chewable 81 MG TAB PO SCH (09:00)
[2020-10-21] MEDS ORDERED: Hydrochlorothiazide 25 MG TAB PO SCH (11:15)
[2020-10-21] MEDS ORDERED: Spironolactone 25 MG TAB PO SCH (11:15)
[2020-10-21] MEDS ORDERED: Losartan 25 MG TAB PO SCH (11:15)
[2020-10-22] MEDS: Hydrochlorothiazide 25 MG TAB PO SCH (09:27)
[2020-10-22] MEDS: Docusate 100 MG CAP PO SCH (09:27)
[2020-10-22] MEDS: Spironolactone 25 MG TAB PO SCH (09:27)
[2020-10-22] MEDS: Ezetimibe 10 MG TAB PO SCH (09:27)
[2020-10-22] MEDS: Potassium Chloride 20 MEQ TAB PO SCH (09:27)
[2020-10-22] MEDS: Cholecalciferol 1,000 UNITS (25 MCG) TAB PO SCH (09:29)
[2020-10-22] MEDS: Cyanocobalamin (Vitamin B-12) 1,000 MCG TAB PO SCH (09:30)
[2020-10-22] MEDS: Furosemide 20 MG TAB PO SCH (09:30)
[2020-10-22] MEDS: hydrALAZINE 25 MG TAB PO SCH (09:30)
[2020-10-22] MEDS: Famotidine/PF 20 mg/2ml Vial SLOW IVP SCH ×2 (09:30→20:21)
[2020-10-22] MEDS: Losartan 25 MG TAB PO SCH (09:30)
[2020-10-22] MEDS: Enoxaparin Sodium 80 MG/0.8 ML SYRINGE SC SCH ×2 (09:31→20:20)
[2020-10-22] MEDS: Aspirin 81 mg Enteric Coated Tablet PO SCH (09:50)
[2020-10-22] MEDS ORDERED: Communication Order-Pharmacy FS SCH (17:00)
[2020-10-22] MEDS ORDERED: Magnesium 2 GM/50 ML 2 GM in Premix Bag 1 BAG IVPB SCH (21:15)
[2020-10-23 04:36] LABS: #Basophils 0.1 thou/uL (0.0-0.2); #Eosinphils 0.1 thou/uL (0.0-0.7); #Lymphocytes 2.1 thou/uL (1.20-3.40); #Monocytes 0.4 thou/uL (0.11-0.59); #Neutrophils 5.1 thou/uL (1.40-6.50); %Basophils 0.6 % (0.0-1.0); %Eosinophils 1.4 % (0.0-10.0); %Monocytes 5.2 % (0.0-10.0); %Neutrophils 65.8 % (42.0-75.0); Hemoglobin 12.1 g/dL (12.0-16.0); Mean Corpuscular HGB CONC 32.9 g/dL (32.0-36.0); Mean Corpuscular Hemoglobin 29.8 pg (27.0-31.0); Mean Corpuscular Volume 90.7 fL (78.0-98.0); Mean Platelet Volume 9.2 fL (7.4-10.4); Platelet Count 281 thou/uL (130-400); RBC Distribution Width 13.4 % (11.5-14.5); Red Blood Cell (RBC) Count 4.04 mill/uL (4.20-5.40); White Blood Cell (WBC) Count 7.7 thou/uL (4.8-10.8)
[2020-10-23] MEDS: Sodium Chloride 0.9% 1,000 ML IV SCH ×2 (05:06→16:48)
[2020-10-23] MEDS: Famotidine/PF 20 mg/2ml Vial SLOW IVP SCH (05:06)
[2020-10-23] MEDS: Ezetimibe 10 MG TAB PO SCH (05:07)
[2020-10-23] MEDS: Aspirin 81 mg Enteric Coated Tablet PO SCH (05:07)
[2020-10-23] MEDS: Losartan 25 MG TAB PO SCH (05:07)
[2020-10-23] MEDS: Cyanocobalamin (Vitamin B-12) 1,000 MCG TAB PO SCH (05:08)
[2020-10-23] MEDS: Cholecalciferol 1,000 UNITS (25 MCG) TAB PO SCH (05:08)
[2020-10-23] MEDS: Potassium Chloride 20 MEQ TAB PO SCH (05:08)
[2020-10-23] MEDS: hydrALAZINE 25 MG TAB PO SCH (05:09)
[2020-10-23] MEDS: Hydrochlorothiazide 25 MG TAB PO SCH (05:09)
[2020-10-23 05:10] LABS: Anion Gap 14 mmol/L (10-20); BUN (Urea Nitrogen) 15 mg/dL (9.8-20.1); Calc. Creatinine Clearance 47 mL/min (70-130); Calcium 8.6 mg/dL (7.8-10.44); Carbon Dioxide 25 mmol/L (23-31); Chloride 104 mmol/L (98-107); Glucose 101 mg/dL (83-110); Magnesium 2.2 mg/dL (1.6-2.6); Potassium 3.5 mmol/L (3.5-5.1); Sodium 139 mmol/L (136-145)
[2020-10-23] MEDS ORDERED: Iopamidol 370 76% 100 ML VIAL ONE (09:07)
[2020-10-23] MEDS: Furosemide 20 MG TAB PO SCH (09:11)
[2020-10-23] MEDS: Spironolactone 25 MG TAB PO SCH (09:11)
[2020-10-23] MEDS: Docusate 100 MG CAP PO SCH (09:28)
[2020-10-23] MEDS ORDERED: Lidocaine 1% (PF) 30 ML VIAL ONE (10:08)
[2020-10-23] MEDS ORDERED: Fentanyl 100 MCG/2 ML VIAL ONE (10:31)
[2020-10-23] MEDS ORDERED: Midazolam HCl 2 mg/2 ml Vial ONE (10:31)
[2020-10-23] MEDS ORDERED: Acetaminophen/Codeine 30-300mg Tablet PO PRN (11:04)
[2020-10-23] MEDS ORDERED: Sodium Chloride 0.9% 200 ML IV PRN (11:04)
[2020-10-23] MEDS ORDERED: Sodium Chloride 0.9% 500 ML IV SCH (11:15)
[2020-10-23] MEDS ORDERED: hydrALAZINE 20 MG/ML VIAL SLOW IVP SCH (15:30)
[2020-10-23 15:51] LABS: Anion Gap 11 mmol/L (10-20); BUN (Urea Nitrogen) 14 mg/dL (9.8-20.1); Calc. Creatinine Clearance 53 mL/min (70-130); Calcium 8.7 mg/dL (7.8-10.44); Carbon Dioxide 27 mmol/L (23-31); Chloride 103 mmol/L (98-107); Glucose 97 mg/dL (83-110); Potassium 4.1 mmol/L (3.5-5.1); Sodium 137 mmol/L (136-145)
[2020-10-23] MEDS ORDERED: Labetalol HCl 100 MG/20 ML VIAL SLOW IVP SCH (18:15)
[2020-10-23] MEDS ORDERED: hydrALAZINE 20 MG/ML VIAL SLOW IVP PRN (18:21)
[2020-10-23] MEDS ORDERED: cloNIDine 0.1 MG TAB PO PRN (18:31)
[2020-10-23] MEDS ORDERED: Ondansetron PF 4 MG/2 ML Vial IVP SCH (18:45)
[2020-10-23] MEDS ORDERED: Fioricet 325/50/40 mg Tablet PO SCH (19:00)
[2020-10-23] MEDS: Atorvastatin Calcium 40 MG TAB PO SCH (20:13)
[2020-10-23 20:26] LABS: Magnesium 1.9 mg/dL (1.6-2.6); Potassium 3.6 mmol/L (3.5-5.1)
[2020-10-24 04:36] LABS: #Eosinphils 0.1 thou/uL (0.0-0.7); #Lymphocytes 1.9 thou/uL (1.20-3.40); #Monocytes 0.6 thou/uL (0.11-0.59); #Neutrophils 5.7 thou/uL (1.40-6.50); %Basophils 0.6 % (0.0-1.0); %Eosinophils 1.3 % (0.0-10.0); %Monocytes 7.2 % (0.0-10.0); Hemoglobin 12.8 g/dL (12.0-16.0); Mean Corpuscular Hemoglobin 30.7 pg (27.0-31.0); Mean Corpuscular Volume 90.4 fL (78.0-98.0); Mean Platelet Volume 9.4 fL (7.4-10.4); Platelet Count 294 thou/uL (130-400); RBC Distribution Width 13.4 % (11.5-14.5); Red Blood Cell (RBC) Count 4.16 mill/uL (4.20-5.40); White Blood Cell (WBC) Count 8.3 thou/uL (4.8-10.8)
[2020-10-24 04:54] LABS: Anion Gap 14 mmol/L (10-20); BUN (Urea Nitrogen) 15 mg/dL (9.8-20.1); Calc. Creatinine Clearance 43 mL/min (70-130); Calcium 8.5 mg/dL (7.8-10.44); Carbon Dioxide 24 mmol/L (23-31); Chloride 102 mmol/L (98-107); Glucose 94 mg/dL (83-110); Magnesium 1.9 mg/dL (1.6-2.6); Phosphorus 4.3 mg/dL (2.3-4.7); Potassium 3.9 mmol/L (3.5-5.1); Sodium 136 mmol/L (136-145)
[2020-10-24] MEDS: Potassium Chloride 20 MEQ TAB PO SCH (08:33)
[2020-10-24] MEDS: Cholecalciferol (Vitamin D3) 400 UNITS TAB PO SCH (08:33)
[2020-10-24] MEDS: Clopidogrel Bisulfate 75 MG TAB PO SCH (08:33)
[2020-10-24] MEDS: Ezetimibe 10 MG TAB PO SCH (08:33)
[2020-10-24] MEDS: Aspirin 81 mg Enteric Coated Tablet PO SCH (08:34)
[2020-10-24] MEDS: Cyanocobalamin (Vitamin B-12) 1,000 MCG TAB PO SCH (08:34)
[2020-10-24] MEDS: Docusate 100 MG CAP PO SCH (08:34)
[2020-10-24] MEDS ORDERED: Famotidine/PF 20 mg/2ml Vial SLOW IVP SCH (09:00)
[2020-10-24] MEDS: Hydrochlorothiazide 25 MG TAB PO SCH (10:20)
[2020-10-24] MEDS: Furosemide 20 MG TAB PO SCH (10:20)
[2020-10-24] MEDS: Losartan 25 MG TAB PO SCH (10:20)
[2020-10-24] MEDS: hydrALAZINE 25 MG TAB PO SCH (10:20)
[2020-10-24] MEDS: Spironolactone 25 MG TAB PO SCH (10:21)
[2020-10-24] MEDS: Atorvastatin Calcium 40 MG TAB PO SCH (20:45)
[2020-10-25 05:21] LABS: #Basophils 0.1 thou/uL (0.0-0.2); #Eosinphils 0.1 thou/uL (0.0-0.7); #Lymphocytes 2.1 thou/uL (1.20-3.40); #Monocytes 0.4 thou/uL (0.11-0.59); #Neutrophils 4.3 thou/uL (1.40-6.50); %Basophils 0.8 % (0.0-1.0); %Eosinophils 2.1 % (0.0-10.0); %Lymphocytes 29.7 % (21.0-51.0); %Neutrophils 61.5 % (42.0-75.0); Hemoglobin 12.4 g/dL (12.0-16.0); Mean Corpuscular HGB CONC 33.7 g/dL (32.0-36.0); Mean Corpuscular Hemoglobin 30.5 pg (27.0-31.0); Mean Corpuscular Volume 90.6 fL (78.0-98.0); Mean Platelet Volume 9.4 fL (7.4-10.4); Platelet Count 271 thou/uL (130-400); RBC Distribution Width 13.2 % (11.5-14.5); Red Blood Cell (RBC) Count 4.08 mill/uL (4.20-5.40)
[2020-10-25 05:45] LABS: Anion Gap 13 mmol/L (10-20); BUN (Urea Nitrogen) 20 mg/dL (9.8-20.1); Calc. Creatinine Clearance 41 mL/min (70-130); Calcium 8.3 mg/dL (7.8-10.44); Carbon Dioxide 26 mmol/L (23-31); Chloride 101 mmol/L (98-107); Glucose 90 mg/dL (83-110); Potassium 4.1 mmol/L (3.5-5.1); Sodium 136 mmol/L (136-145)
[2020-10-25] MEDS: Cyanocobalamin (Vitamin B-12) 1,000 MCG TAB PO SCH (08:48)
[2020-10-25] MEDS: Hydrochlorothiazide 25 MG TAB PO SCH (08:49)
[2020-10-25] MEDS: Aspirin 81 mg Enteric Coated Tablet PO SCH (08:49)
[2020-10-25] MEDS: Clopidogrel Bisulfate 75 MG TAB PO SCH (08:49)
[2020-10-25] MEDS: Spironolactone 25 MG TAB PO SCH (08:49)
[2020-10-25] MEDS: Cholecalciferol (Vitamin D3) 400 UNITS TAB PO SCH (08:49)
[2020-10-25] MEDS: Ezetimibe 10 MG TAB PO SCH (08:49)
[2020-10-25] MEDS: hydrALAZINE 25 MG TAB PO SCH (08:49)
[2020-10-25] MEDS: Losartan 25 MG TAB PO SCH (08:49)
[2020-10-25] MEDS: Potassium Chloride 20 MEQ TAB PO SCH (08:50)
[2020-10-25] MEDS: Docusate 100 MG CAP PO SCH (08:50)
[2020-10-25 12:56] VITALS: BP 121/55; TEMP 98.7
[2020-10-26] MEDS ORDERED: Digoxin 0.125 MG TAB PO SCH (09:00)
== END 2020-10-25 17:33 | disposition home or self-care (01) | DRG 281 ==
LOC: ERS 20:37 → 2NO 22:39 → OBSVTOIN 10-23 10:27
PROVIDERS: ADMIT Student in an Organized Health Care Education/Training Program; ATTEND Internal Medicine
PROC: 4A023N7 Measurement of Cardiac Sampling and Pressure, Left Heart, Percutaneous Approach (ICD-10-PCS; principal; 2020-10-23)
PROC: B2111ZZ Fluoroscopy of Multiple Coronary Arteries using Low Osmolar Contrast (ICD-10-PCS; 2020-10-23)
DX: I97.190 Other postprocedural cardiac functional disturbances following cardiac surgery (principal); I21.A9 Other myocardial infarction type; I47.2 Ventricular tachycardia; N17.9 Acute kidney failure, unspecified; I16.0 Hypertensive urgency; E87.6 Hypokalemia; I12.9 Hypertensive chronic kidney disease with stage 1 through stage 4 chronic kidney disease, or unspecified chronic kidney disease; N18.2 Chronic kidney disease, stage 2 (mild); Z20.822 Contact with and (suspected) exposure to COVID-19; G89.29 Other chronic pain; E78.5 Hyperlipidemia, unspecified; Y83.2 Surgical operation with anastomosis, bypass or graft as the cause of abnormal reaction of the patient, or of later complication, without mention of misadventure at the time of the procedure; Z79.82 Long term (current) use of aspirin; Z95.1 Presence of aortocoronary bypass graft; Z90.49 Acquired absence of other specified parts of digestive tract; Z98.51 Tubal ligation status
CPT/HCPCS: 36415; 80048; 80061; 82553; 83735; 83880; 84100; 84443; 84484; 85025; 87635; 90471; 90732; 93005; 93010; 93306; 93458; 93798; 94640; 94760; 96365; 96372; 96375; 96376; 99152; 99153; G0009; G0378; J0360; J1650; J2001; J2250; J2405; J3010; J3475; J7620; Q9967; S0028; U0003; U0005

== ENCOUNTER 2021-05-02 10:36 | Outpatient (CLI) | payer MEDICARE ==
[2021-05-02 13:40] LABS: Hemoglobin 11.8 g/dL (12.0-15.5); Mean Corpuscular HGB CONC 32.5 g/dL (32.0-36.0); Mean Corpuscular Hemoglobin 29.4 pg (27.0-33.0); Mean Corpuscular Volume 90.3 fl (81.6-98.3); Mean Platelet Volume 12.6 fl (7.4-10.4); Platelet Count 311 10x3/uL (150-450); RBC Distribution Width 14.5 % (11.5-14.5); Red Blood Cell (RBC) Count 4.02 10x6/uL (3.90-5.03); White Blood Cell (WBC) Count 5.8 10x3/uL (3.5-10.5)
[2021-05-02 13:47] LABS: Anion Gap 15 mmol/L (10-20); BUN (Urea Nitrogen) 17 mg/dL (9.8-20.1); Calc. Creatinine Clearance 0 mL/min (70-130); Calcium 9.6 mg/dL (7.8-10.44); Carbon Dioxide 22 mmol/L (23-31); Chloride 110 mmol/L (98-107); Glucose 74 mg/dL (83-110); Potassium 3.7 mmol/L (3.5-5.1); Sodium 143 mmol/L (136-145)
[2021-05-02 13:52] LABS: INR-International Normal Ratio 0.9; PTT 24.3 sec (22.0-33.0); Prothrombin Time 10.1 sec (9.5-12.1)
[2021-05-02 19:46] LABS: SARS-CoV-2 PCR by NAA Not Detected (NotDetected)
== END 2021-05-02 10:37 | disposition home or self-care (01) ==
LOC: LABBT 10:36
PROVIDERS: ATTEND Internal Medicine Cardiovascular Disease
DX: Z01.812 Encounter for preprocedural laboratory examination (principal); I47.1 Supraventricular tachycardia; Z20.822 Contact with and (suspected) exposure to COVID-19
CPT/HCPCS: 80048; 85027; 85610; 85730; U0003; U0005

== ENCOUNTER → 2021-05-07 | Day surgery (SDC) | payer MEDICARE ==
[2021-05-04 13:39] VITALS: BMI 27.1
[~2021-05-07] MED LIST: Fentanyl 100 MCG/2 ML VIAL ONE; HYDROcodone/Acetaminophen 5/325 mg Tablet ONE; HYDROcodone/Acetaminophen 5/325 mg Tablet PO SCH; Heparin 10,000 UNITS/ 10 ML VIAL ONE; Heparin 25,000 units/D5W 0 ML ONE; Hydrochlorothiazide 25 MG TAB PO SCH; Isoproterenol 0.2 MG/1 ML AMP ONE; Lidocaine 1% (PF) 30 ML VIAL ONE; Lidocaine 1% PF 5 ML VIAL ONE; Ondansetron PF 4 MG/2 ML Vial ONE; PHENYLEPHRINE-NS 100 MCG/ML 10 ML SYRINGE ONE; PROPOFOL 200 MG/20 ML VIAL ONE; Phenylephrine 10 MG/ML VIAL ONE; Propofol 500 MG/50 ML VIAL ONE; hydrALAZINE 20 MG/ML VIAL ONE; hydrALAZINE 20 MG/ML VIAL SLOW IVP SCH; hydrALAZINE 25 MG TAB PO SCH
== END ==
LOC: CCL 06:00
PROVIDERS: ATTEND Internal Medicine Cardiovascular Disease
PROC: 4A023FZ Measurement of Cardiac Rhythm, Percutaneous Approach (ICD-10-PCS; principal; 2021-05-07)
PROC: 4A0234Z Measurement of Cardiac Electrical Activity, Percutaneous Approach (ICD-10-PCS; 2021-05-07)
PROC: 02K83ZZ Map Conduction Mechanism, Percutaneous Approach (ICD-10-PCS; 2021-05-07)
DX: I47.1 Supraventricular tachycardia (principal); I48.91 Unspecified atrial fibrillation; R00.1 Bradycardia, unspecified; Z79.02 Long term (current) use of antithrombotics/antiplatelets; Z79.899 Other long term (current) drug therapy; Z88.1 Allergy status to other antibiotic agents; Z88.8 Allergy status to other drugs, medicaments and biological substances; Z95.1 Presence of aortocoronary bypass graft
CPT/HCPCS: 93005; 93010; 93613; 93621; 93623; C1730; C1732; J0360; J1644; J2001; J2370; J2405; J2704; J3010